=== PATIENT | male | born 2000 | race Caucasian/White ===

== ENCOUNTER 2020-05-06 07:42 | Emergency (ER) | payer BC, OTHER ==
--- NOTE | 2020-05-06 08:09 | EDM.PDOC ---
ED HPI GENERAL MEDICAL PROBLEM - General Chief Complaint: Laceration Stated Complaint: left index finger laceration Time Seen by Provider: 05/06/20 08:05 Source of Information: Reports: Patient, Old Records ([facility] chart/EMR) History Limitations: Reports: No Limitations - History of Present Illness INITIAL COMMENTS - FREE TEXT/NARRATIVE: The patient was brought to the emergency room via private automobile by his significant other for evaluation of a Workmen's Compensation injury, which occurred at 6:40 AM this morning. The patient accidentally hit his second finger of his left hand with a hammer resulting in a laceration with the patient not injuring this digit in the past. He is right-handed. Laceration site was washed out with tap water with antiseptic spray also applied by the [facility] nurse, however no other medications or treatment prior to arrival. No recent history of abdominal pain, heartburn, nausea, diarrhea, melena, gross hematochezia, or any food intolerance, including fatty foods, etc.. The patient also denies any recent fever, cough, wheezing, dyspnea, etc.. Onset: Today, Sudden Onset Date: 05/06/20 Onset Time: 08:08 Duration: Constant Location: Reports: Upper Extremity, Left. 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 Denies: Aneurysm, Arrhythmia, Blood Clots/VTE/DVT, Heart Murmur, High Cholesterol, Hypertension Respiratory History: Reports: Intubation, Previous. Denies: Asthma, COPD, Intubation, Difficult, PE, Pneumothorax, Sleep Apnea Gastrointestinal History: Reports: None. Denies: Celiac Disease, Chronic Constipation, Chronic Diarrhea, GERD, GI Bleed, Inflammatory Bowel Disease, Irritable Bowel Syndrome, Jaundice, PUD Genitourinary History: Reports: None. Denies: Acute Renal Failure, Chronic Renal Insuffiency, Renal Calculus, Retention, Urinary, STD, Urinary Incontinence, UTI, Recurrent Musculoskeletal History: Reports: Arthritis, Back Pain, Chronic, Fracture, Osteoarthritis. Denies: Gout, Neck Pain, Chronic, RA, SLE Other Musculoskeletal History: Left femur fracture at age 2. Neurological History: Reports: Concussion, Headaches, Chronic, Head Trauma, Migraines, Other (See Below). Denies: Cerebral Aneurysms, Neuropathy, Peripheral, Seizure Other Neuro History: Head concussions x2 in the past however not evaluated. Psychiatric History: Denies: Abuse, Victim of, ADD, ADHD, Addiction, Anxiety, Dementia, Psych Hospitalization(s), PTSD, Suicide Attempt, Suicidal Ideation Endocrine/Metabolic History: Denies: Diabetes, Type I, Diabetes, Type II, Hypothyroidism, IDDM Hematologic History: Reports: None. Denies: Anemia, Blood Transfusion(s) Immunologic History: Reports: None. Denies: AIDS, HIV, SLE Oncologic (Cancer) History: Reports: None. Denies: Basal Cell Carcinoma, Hodgkin's Lymphoma, Leukemia, Lymphoma, Malignant Melanoma, Non-Hodgkin's Lymphoma, Squamous Cell Carcinoma Dermatologic History: Reports: None. Denies: Eczema, Psoriasis - Infectious Disease History Infectious Disease History: Reports: None. Denies: C-Difficile, Chicken Pox, Measles, Meningitis, Mononucleosis, MRSA, Mumps, Novel Coronavirus, Pertussis (Whooping Cough), Rheumatic Fever, Rubella, Scarlet Fever, TB, VRE - Past Surgical History Head Surgeries/Procedures: Reports: None HEENT Surgical History: Reports: Oral Surgery, Other (See Below). Denies: Adenoidectomy, Eye Surgery, Laser Surgery, Myringotomy w Tube(s), Naso-Sinus Surgery, Tonsillectomy Other HEENT Surgeries/Procedures: [place] teeth extraction x4 at age 15. Cardiovascular Surgical History: Reports: None. Denies: Varicose Respiratory Surgical History: Reports: None. Denies: Thoracentesis GI Surgical History: Reports: None. Denies: Appendectomy, Colonoscopy, EGD, Hernia, Abdominal, Hernia, Inguinal, Hernia Repair/Other Male Surgical History: Reports: Circumcision, Other (See Below). Denies: Vasectomy Other Male Surgeries/Procedures: Partial circumcision as an . Endocrine Surgical History: Reports: None. Denies: Thyroid Biopsy Neurological Surgical History: Reports: None. Denies: C-Spine, Discectomy, Laminectomy, Lumbar Spine, Sacral Spine, Spinal Fusion, Thoracic Spine, Vertebroplasty Musculoskeletal Surgical History: Reports: ORIF, Other (See Below). Denies: Arthroscopic Procedure, Carpal Tunnel, Ganglion Cyst, Joint Replacement, Knee Replacement, Shoulder Surgery Other Musculoskeletal Surgeries/Procedures:: ORIF of left femur fracture at age 2. Oncologic Surgical History: Reports: None Dermatological Surgical History: Reports: None Social & Family History - Tobacco Use Tobacco Use Status *Q: Former Tobacco User Tobacco Use Within Last Twelve Months: No, Cigarettes Years of Tobacco use: 3 Packs/Tins Daily: 1 Packs/Tins Daily Comment: Smokes cigarettes between 15 and 18 years of age. Used Tobacco, but Quit: Yes Smoking Cessation Information Provided To Patient: No Second Hand Smoke Exposure: No Second Hand Smoke Education Provided: No - Caffeine Use Caffeine Use: Reports: Coffee (1 cup/day), Energy Drinks (1 can/day), Tea (1 glass/week). Denies: Soda - Alcohol Use Alcohol Use History: Yes Days Per Week of Alcohol Use: 0 Number of Drinks Per Day: 2 Number of Drinks Per Day Comment: Usually beer on an occasional basis secondary to underage. No previous DWIs, problems with alcohol abuse, etc. Total Drinks Per Week: 0 Alcohol Use in Last Twelve Months: Yes - Recreational Drug Use Recreational Drug Use: No Drug Use in Last 12 Months: No Recreational Drug Type: Denies: Amphetamines (Speed), Cocaine, Dextromethorphan (Cough Syrup), Heroin, Inhalants (Glues, Solvents, Aerosols), LSD (Acid), Marijuana/Hashish, Methamphetamine, Morphine, Oxycodone - Sexual History Sexual History: Reports: Single Partner - Living Situation & Occupation Living situation: Reports: Alone (Occasionally with significant other. No children) Occupation: Employed ([email or web address]) ED ROS GENERAL - Review of Systems Review Of Systems: Comprehensive ROS is negative, except as noted in HPI. ED EXAM, SKIN/RASH Exam: See Below Exam Limited By: No Limitations General Appearance: Alert, WD/WN, No Apparent Distress Head: Atraumatic, Normocephalic. No: Facial Swelling, Facial Tenderness, Sinus Tenderness Neck: Normal Inspection, Supple, Non-Tender, Full Range of Motion. No: Lymphadenopathy (L), Lymphadenopathy (R), Thyromegaly Respiratory/Chest: No Respiratory Distress, Lungs Clear, Normal Breath Sounds, No Accessory Muscle Use, Chest Non-Tender. No: Pleural Rub, Retractions Cardiovascular: Normal Peripheral Pulses, Regular Rate, Rhythm, No Edema, No Gallop, No JVD, No Murmur, No Rub. No: Gallop/S3, Gallop/S4, Friction Rub Peripheral Pulses: 2+: Radial (L), Radial (R) GI/Abdominal: Normal Bowel Sounds, Soft, Non-Tender, No Organomegaly, No Distention, No Abnormal Bruit, No Mass, Pelvis Stable. No: Guarding (Male) Exam: Deferred Rectal (Males) Exam: Deferred Back Exam: Normal Inspection, Full Range of Motion. No: CVA Tenderness (L), CVA Tenderness (R), Muscle Spasm Extremities: Normal Range of Motion, No Pedal Edema, Normal Capillary Refill, Other (2 cm in length laceration over the ulnar surface of the distal and middle phalanx of digit #2 of the left hand with no joint involvement). No: Non- Tender (Mild tenderness over laceration site with no crepitation, deformity, foreign body, or evidence of fracture) Neurological: Alert, Oriented, CN II-XII Intact, Normal Cognition, Normal Gait, No Motor/Sensory Deficits Psychiatric: Normal Affect, Normal Mood Skin: Wound/Incision (As above). No: Diaphoretic Location, Skin: Upper Extremity, Left Characteristics: Other (As above) Associated features: Tenderness (Mild) Lymphatic: No Adenopathy ED SKIN PROCEDURES - Laceration/Wound Repair Left Medial Distal Digit - 2nd (Index) Appearance: Subcutaneous, Clean Distal NVT: Neuro & Vascular Intact, No Tendon Injury Anesthetic Type: Local Local Anesthesia - Lidocaine (Xylocaine): 1% Plain Local Anesthetic Volume: 4cc Skin Prep: Providone-Iodine (Betadine) Exploration/Debridement/Repair: Wound Explored, In a Bloodless Field, Explored to Base, No Foreign Material Found Closed with: Sutures Lac/Wound length In cm: 2.0 # of Sutures: 5 Suture Type: Nylon, Interrupted, Simple Drain Placement: No Sterile Dressing Applied: Nurse Tetanus Status Addressed: Yes Complications: No - Splinting Left 2nd Digit Splint Site: Digit #2 of the left hand Pre-Procedure NV Status: Normal Post-Procedure NV Status: Normal Splint Material: Aluminum-Foam (3-hole preformed padded aluminum finger) Splint Design: Extensor (And flexor) Applied & Form Fitted By: Nurse Provider Post-Splint Application NV Check: NV Status Normal, Good Position Complications: No Course - Vital Signs Last Recorded V/S: Last Vital Signs Temp 37.2 C 05/06/20 07:47 Pulse 63 05/06/20 07:47 Resp 14 05/06/20 07:47 BP 112/70 05/06/20 07:47 Pulse Ox 100 05/06/20 07:47 Vital Signs - 24 hr 05/06/20 07:47 Temperature [ 37.2 C Temporal] Pulse, 63 Peripheral [ Pulse Oximetry] Respiratory 14 Rate Blood Pressure 112/70 [Right Upper Arm] O2 Sat by Pulse 100 Oximetry - Orders/Labs/Meds Orders: Active Orders 24 hr Category Date Time Status Fingers Second Digit Lt F1 [CR] Stat Exams 05/06/20 08:09 Taken Durable Medical Equipment for Discharge [DME for Oth 05/06/20 09:08 Ordered Discharge] [COMM] Routine Obtain Past Medical Record [OM.PC] Routine Oth 05/06/20 08:09 Active Labs: None Meds: Medications Discontinued Medications Generic Name Dose Route Start Last Admin Trade Name Genoveva PRN Reason Stop Dose Admin Lidocaine HCl 5 ml 05/06/20 08:10 05/06/20 08:36 Xylocaine-Mpf 1% INJECT 05/06/20 08:11 5 ml ONETIME ONE Administration Neomycin/Polymyxin/Bacitracin 1 each 05/06/20 08:10 05/06/20 08:36 Triple Antibiotic Oint TOP 05/06/20 08:11 1 each ONETIME ONE Administration - Radiology Interpretation Free Text/Narrative:: X-rays of digit #2 of the left hand, complete, shows no evidence of fracture, dislocation, foreign body, etc. 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 Follow up with your regular provider in 10-14 days for suture removal as directed. Bring these discharge instructions with you to that visit. 2. Tylenol 650 mg by mouth every 4 hours and/or OTC ibuprofen 2-3 tabs by mouth every 6 hours with food as directed./needed. You may stagger these medications for 48-72 hours only, which essentially means that you are receiving a pain medication about every 2 hours. 3. Antibacterial soap wash/soak with subsequent antibacterial dressing such as Neosporin, etc. as directed 2 times per day until the wound or laceration site completely heals. Keep the area clean and dry with activity restrictions as discussed. Never use hydrogen peroxide for wound care. 4. Work excuse- See Form 5. Immediately after this visit verify that your cellular telephone's voicemail has been activated and is empty. Also verify that your home telephone's answering machine is operating properly and has space to receive messages. Note that it is sometimes necessary for us to be able to contact you at a later date to discuss your medical care. 6. Please remember that we are ALWAYS here for you and want to answer any questions you may have. Feel free to call the hospital any time and we call you back ALVIN. 7. Stop all energy drink use ALVIN as discussed. 8. Wear finger splint at all times with exception of wound care and bathing until otherwise directed by your regular provider. Sepsis Event Note (ED) - Evaluation Sepsis Screening Result: No Definite Risk - Focused Exam Vital Signs: Vital Signs Temp Pulse Resp BP Pulse Ox 05/06/20 07:47 37.2 C 63 14 112/70 100 - Problem List & Annotations (1) Laceration SNOMED Code(s): 424406504 Code(s): DLV1397 - Status: Acute Priority: High Current Visit: No Onset Date: 05/06/20 Annotation/Comment:: Excellent results with laceration repair as above. Activity restrictions, wound care, etc. were discussed with finger splint placed by the nurse. Workmen's Compensation and [email or web address] work excuse forms were completed. Emergency room nurse did verify patient's last TDAP on 01/21/2015 with verification through [employer], and no booster required. (2) Osteoarthritis SNOMED Code(s): 038218144 Code(s): M19.90 - UNSPECIFIED OSTEOARTHRITIS, UNSPECIFIED SITE Status: Chronic Priority: Medium Current Visit: No Annotation/Comment:: Otherwise stable by history with no evidence of other injury. Qualifiers: Osteoarthritis location: multiple joints Osteoarthritis type: primary Qualified Code(s): M89.49 - Other hypertrophic osteoarthropathy, multiple sites - Problem List Review Problem List Initiated/Reviewed/Updated: Yes - My Orders Last 24 Hours: My Active Orders 05/06/20 08:09 Fingers Second Digit Lt F1 [CR] Stat Obtain Past Medical Record [OM.PC] Routine 05/06/20 09:08 Durable Medical Equipment for Discharge [DME for Discharge] [COMM] Routine - Assessment/Plan Last 24 Hours: My Active Orders 05/06/20 08:09 Fingers Second Digit Lt F1 [CR] Stat Obtain Past Medical Record [OM.PC] Routine 05/06/20 09:08 Durable Medical Equipment for Discharge [DME for Discharge] [COMM] Routine Assessment:: As above Plan: As above. Extensive precautions were given to the patient, who is in agreement with the treatment plan. See Patient Instructions for further treatment and plan.
[2020-05-06] MEDS: Bacitracin/Neomycin/Polymyxin B Oint 0.9 GM U/D Packet TOP ONE (08:36)
== END 2020-05-06 09:20 | disposition home or self-care (01) ==
LOC: LL.ED 07:42
DX: S61.211A Laceration without foreign body of left index finger without damage to nail, initial encounter (principal); M89.49 Other hypertrophic osteoarthropathy, multiple sites; Z87.891 Personal history of nicotine dependence; W26.8XXA Contact with other sharp object(s), not elsewhere classified, initial encounter; Y99.0 Civilian activity done for income or pay
CPT/HCPCS: 12001; 73140-F1; 99283-25; J2001

== ENCOUNTER 2021-09-15 23:09 | Emergency (ER) | payer BC, OTHER | END 2021-09-16 00:20 | disposition home or self-care (01) | LOC: LL.ED 23:09 | DX: S61.411A Laceration without foreign body of right hand, initial encounter (principal); Z72.0 Tobacco use; W31.89XA Contact with other specified machinery, initial encounter; Y99.0 Civilian activity done for income or pay | CPT/HCPCS: 12001; 73130-RT; 99283; 99283-25 ==

== ENCOUNTER 2022-02-15 13:29 | Emergency (ER) | payer BC, OTHER ==
[2022-02-15] MEDS: Tetracaine HCl/PF 0.5% 4 ML Bottle EYERT ONE (13:45)
[2022-02-15] MEDS: Erythromycin Base 0.5% Ophth Oint 3.5 GM Tube EYERT ONE (14:47)
== END 2022-02-15 14:44 | disposition home or self-care (01) ==
LOC: LL.ED 13:29
DX: T15.01XA Foreign body in cornea, right eye, initial encounter (principal)
CPT/HCPCS: 65220; 99283; A9270-GY